=== PATIENT | male | born 1980 | race Caucasian/White ===

== ENCOUNTER → 2017-07-26 | Outpatient (CLI) | payer OTHER ==
--- NOTE | 2017-07-26 14:26 | MR ---
EXAMINATION TYPE: MR cervical spine without contrast. DATE OF EXAM: 07/26/2017 COMPARISON: NONE HISTORY: Neck and Low back pain, numbness and weakness mostly on Left side, No Known Trauma TECHNIQUE: Multiplanar, multisequence imaging of the cervical spine is performed without IV contrast. FINDINGS: MRI of the brain without contrast reveals no evidence of cerebellar ectopia. Marrow signal is appropriate. There is mild intervertebral disc desiccation noted at the level of C5-C6. The cord i s normal in caliber and signal. There is no evidence of cord edema. Visualized soft tissue structures are unremarkable. The prevertebral space appears to be within normal limits. There is a normal relationship between the anterior arch of C1 and the dens process. C2-3: No central canal stenosis or neural foraminal narrowing is identified. C3-4: Minimal posterior disc bulge is identified which effaces the ventral thecal sac but does not ab ut the cord. There is satisfactory CSF space anterior to the cord. No central canal stenosis or neura l foraminal narrowing is identified. C4-5: Minimal posterior disc bulge is identified. No central canal stenosis or neural foraminal narro wing is seen. C5-6: There is a posterior disc extrusion with minimal superior and inferior migration by 5 mm superi or and 4 mm inferior. There is near abutment of the cord. The central canal space appears to be intac t. Component of disc herniation into both lateral recesses which does not cause significant compromis e. There is mild relative central canal stenosis with no neural foraminal narrowing. C6-7: There is no central canal stenosis or neural foraminal narrowing. C7-T1: No central canal stenosis or neural foraminal narrowing. IMPRESSION: At the level of C5-C6 there is a posterior disc herniation with superior and inferior migration. EXAMINATION TYPE: MRI lumbar spine without contrast. DATE OF EXAM: July 26, 2017 COMPARISON: None HISTORY: Low back pain numbness and weakness on the left side. TECHNIQUE: Multisequence, multiplanar, MR imaging of the lumbar spine is performed without the use of intravenous contrast. FINDINGS: The conus is not definitively identified. There is disc desiccation noted at the level of L5-S1. Vert ebral body height is maintained. There is heterogeneous marrow signal noted in the vertebral body of S1 on the left of unknown etiology or significance. There appear to be bilateral pars interarticulari s defects with grade 1 anterolisthesis of L5 on S1. There is also posterior disc extrusion with no si gnificant migration. This disc extrusion extends into both neural foramina. Soft tissue structures ap pear unremarkable. T12-L1: No central canal stenosis or neural foraminal narrowing. L1-2: No central canal stenosis or neural foraminal narrowing. L2-3: No central canal stenosis or neural foraminal narrowing. L3-4: No central canal stenosis or neural foraminal narrowing is identified. L4-5: There is no central canal stenosis or neural foraminal narrowing. L5-S1: There is a posterior disc extrusion with no significant migration. There is no central canal s tenosis. There is also grade 1 anterolisthesis due to spondylolysis which contributes to at least mod erate bilateral neural foraminal narrowing with severe neural foraminal narrowing on the left keshawn sing the exiting left L5 nerve root. IMPRESSION: At the level of L5-S1 there is grade 1 anterolisthesis with posterior disc extrusion due to bilateral pars interarticularis defects with bilateral neural foraminal narrowing and compression and deformity of the exiting left L5 nerve root.
== END | disposition home or self-care (01) ==
LOC: RADMRIMAIN 09:37
PROVIDERS: ATTEND Nurse Practitioner Acute Care
DX: M99.73 Connective tissue and disc stenosis of intervertebral foramina of lumbar region (principal); M51.27 Other intervertebral disc displacement, lumbosacral region; M43.17 Spondylolisthesis, lumbosacral region; M50.222 Other cervical disc displacement at C5-C6 level
CPT/HCPCS: 72141; 72148

== ENCOUNTER 2019-12-06 11:12 | Observation (INO) | payer OTHER ==
[2019-12-06] MEDS ORDERED: SODIUM CHLORIDE 0.9% 1,000 ML IV STA ×2 (11:27)
[2019-12-06] MEDS ORDERED: NITROGLYCERIN SL TABS 0.4 MG TAB SUBLINGUAL STA (11:27)
[2019-12-06] MEDS ORDERED: ASPIRIN 81 MG PO STA (11:27)
[2019-12-06] MEDS ORDERED: MORPHINE SULFATE 2 MG/ML SYRINGE IVP STA (11:27)
[2019-12-06] MEDS ORDERED: ONDANSETRON 4 MG/2 ML VIAL IVP STA (11:29)
--- NOTE | 2019-12-06 11:32 | ED ---
Chest Pain HPI - General Chief Complaint: Chest Pain Stated Complaint: chest & arm pain Time Seen by Provider: 12/06/19 11:17 Source: patient, RN notes reviewed, old records reviewed Mode of arrival: ambulatory Limitations: no limitations - History of Present Illness Initial Comments: Patient is a 39-year-old male who presents emergency Department today with complaints of nausea and vomiting. Generally unwell which prompted him to come to his primary care doctor's office today. Patient was awaiting the primary care doctor's office Patient noticed that he was starting to have some chest discomfort with radiation down the left arm. Patient had an EKG performed there which showed sinus rhythm and RSR in V1 and V2. There is no signs of STEMI at that time. And the PCP encouraged Patient to come here for further evaluation. He does report that he's been having some intermittent chest discomfort with radiation down the arm for the past few weeks. He does not see special education secretary. He is a nonsmoker. Patient is a diabetic manages his diabetes with diet and oral medication. Patient reports he's had no changes in stools or urine. Patient reports his pain is a 9 out of 10 on the chest and the radiation down the left arm. - Related Data Home Medications Medication Instructions Recorded Confirmed Albuterol Sulfate [Proair Hfa] 1 - 2 puff INHALATION RT-Q6H PRN 03/16/16 12/06/19 DULoxetine HCL [Cymbalta] 30 mg PO BID 12/06/19 12/06/19 Ergocalciferol [Vitamin D2] 50,000 unit PO MOFR 12/06/19 12/06/19 HYDROcodone/APAP 7.5-325MG [[place] 1 tab PO BID 12/06/19 12/06/19 7.5-325] Omeprazole [PriLOSEC] 40 mg PO DAILY 12/06/19 12/06/19 tiZANidine [Zanaflex] 2 mg PO HS 12/06/19 12/06/19 Previous Rx's Medication Instructions Recorded Naproxen 500 mg PO Q12HR #20 tab 03/16/16 Allergies Allergy/AdvReac Type Severity Reaction Status Date / Time No Known Allergies Allergy Verified 12/06/19 11:57 Review of Systems ROS Statement: Those systems with pertinent positive or pertinent negative responses have been documented in the HPI. ROS Other: All systems not noted in ROS Statement are negative. EKG Findings - EKG Comments: EKG Findings:: EKG performed at 11:21 AM shows sinus bradycardia, minimal voltage criteria for LVH. Ventricular rate of 56 bpm. Intervals 152 ms. QS duration 98 ms. QT QTc is\ 438/422 ms. Past Medical History Past Medical History: Asthma History of Any Multi-Drug Resistant Organisms: None Reported Past Surgical History: No Surgical Hx Reported Past Psychological History: No Psychological Hx Reported Smoking Status: Never smoker Past Alcohol Use History: None Reported Past Drug Use History: None Reported General Exam - General Exam Comments Initial Comments: 39-year-old male. Alert and oriented 3. Limitations: no limitations General appearance: alert, in no apparent distress Head exam: Present: atraumatic, normocephalic, normal inspection Eye exam: Present: normal appearance, PERRL, EOMI. Absent: scleral icterus, conjunctival injection, periorbital swelling ENT exam: Present: normal exam, mucous membranes moist Neck exam: Present: normal inspection. Absent: tenderness, meningismus, lymphadenopathy Respiratory exam: Present: normal lung sounds bilaterally Cardiovascular Exam: Present: regular rate Extremities exam: Present: normal inspection, full ROM, normal capillary refill. Absent: tenderness, pedal edema, joint swelling, calf tenderness Back exam: Present: normal inspection Neurological exam: Present: alert, oriented X3, CN II-XII intact Psychiatric exam: Present: normal affect, normal mood Course Vital Signs 12/06/19 12/06/19 12/06/19 11:14 11:45 11:51 Temperature 97.9 F Pulse Rate 64 58 L 66 Respiratory 18 16 16 Rate Blood Pressure 148/79 127/90 131/90 O2 Sat by Pulse 99 98 97 Oximetry Chest Pain MDM - MDM His is a 39-year-old male who presents emergency Department today with complaints of chest discomfort range on the left-sided arm symptoms starting an hour prior to arrival. He was going to his primary care doctor's office for nausea and vomiting symptoms recurring today and while the PCP about the chest discomfort. He reports he's been having these symptoms intermittently for the past few months. He is a diabetic not seen a special education secretary. With the persistent symptoms concerning for unstable angina Patient will be admitted at this time. Troponin was negative d-dimer is negative. Chest x-ray shows no acute process. Course in Central interstitial could be related to bronchitis reports ration. Correlate clinically exclude interstitial pneumonitis or venous congestion. Disposition Clinical Impression: Unstable angina Disposition: ADMITTED IP TO THIS HOSP Condition: Good Is patient prescribed a controlled substance at d/c from ED?: No Referrals: [facility] [Primary Care Provider] - 1-2 days Time of Disposition: 13:18
[2019-12-06 11:51] LABS: Basophils # (A) 0.1 k/uL (0-0.2); Basophils % (A) 1 %; Eosinophils # (A) 0.3 k/uL (0-0.7); Eosinophils % (A) 5 %; HCT 44.1 % (39.0-53.0); HGB 14.8 gm/dL (13.0-17.5); Lymphocytes # (A) 1.9 k/uL (1.0-4.8); Lymphocytes % (A) 30 %; MCH 29.2 pg (25.0-35.0); MCHC 33.6 g/dL (31.0-37.0); MCV 86.8 fL (80.0-100.0); Mean Platelet Volume 7.2; Monocytes # (A) 0.4 k/uL (0-1.0); Monocytes % (A) 6 %; Neutrophils # (A) 3.6 k/uL (1.3-7.7); Neutrophils % (A) 55 %; Platelet Count 309 k/uL (150-450); RBC 5.08 m/uL (4.30-5.90); RDW 13.4 % (11.5-15.5); WBC 6.5 k/uL (3.8-10.6)
[2019-12-06 12:02] LABS: ALT 33 U/L (4-49); AST 33 U/L (17-59); African American GFR (CKD) >90 (>60 ml/min/1.73 sqM); Albumin 4.6 g/dL (3.5-5.0); Alkaline Phosphatase 47 U/L (38-126); Amylase 53 U/L (30-110); Anion Gap 6 mmol/L; Blood Urea Nitrogen 14 mg/dL (9-20); Calcium 9.5 mg/dL (8.4-10.2); Carbon Dioxide 28 mmol/L (22-30); Chloride 106 mmol/L (98-107); D-Dimer 0.19 mg/L FEU (<0.60); Glucose 98 mg/dL (74-99); Magnesium 2.1 mg/dL (1.6-2.3); Non-African American GFR(CKD) >90 (>60 ml/min/1.73 sqM); Partial Thromboplastin Time 22.4 sec (22.0-30.0); Potassium 4.8 mmol/L (3.5-5.1); Prothrombin Time 10.1 sec (9.0-12.0); Sodium 140 mmol/L (137-145); Total Bilirubin 0.6 mg/dL (0.2-1.3); Total Protein 7.3 g/dL (6.3-8.2)
--- NOTE | 2019-12-06 12:09 | XR ---
EXAMINATION TYPE: XR chest 2V DATE OF EXAM: 12/06/2019 COMPARISON: NONE TECHNIQUE: PA and lateral views submitted. HISTORY: Chest pain FINDINGS: The lungs are clear and there is no pneumothorax, pleural effusion, or focal pneumonia. Coarsened c entral interstitium. Heart size normal. IMPRESSION: 1. No acute process. Coarsened central interstitium could be related to bronchitis or poor inspiratio n. Correlate clinically to exclude interstitial pneumonitis or venous congestion.
[2019-12-06] MEDS ORDERED: MORPHINE SULFATE 4 MG/ML SYRINGE IV PRN (13:18)
[2019-12-06] MEDS ORDERED: NITROGLYCERIN SL TABS 0.4 MG TAB SUBLINGUAL PRN (13:18)
[2019-12-06] MEDS ORDERED: ALBUTEROL NEBULIZED 2.5 MG/3 ML INHALATION PRN (14:22)
[2019-12-06 15:22] VITALS: RESP 18
[2019-12-06 19:47] VITALS: BP 127/69; PULSE 63; TEMP 98.4
[2019-12-06 20:40] LABS: Appearance,Urine Clear (Clear); Color,Urine Yellow; Glucose,Urine (UA) Negative (Negative); Ketones,Urine Negative (Negative); Protein,Urine Negative (Negative); Specific Gravity,Urine 1.005 (1.001-1.035)
[2019-12-06 20:41] LABS: Bilirubin,Urine Negative (Negative); Blood,Urine Negative (Negative); Leukocyte Esterase,Urine Negative (Negative); Nitrite,Urine Negative (Negative); Urobilinogen,Urine <2.0 mg/dL (<2.0)
[2019-12-06] MEDS ORDERED: tiZANidine 4 MG TAB PO SCH (21:00)
[2019-12-06] MEDS ORDERED: HYDROcodone/APAP 7.5-325MG 1 EACH TAB PO SCH (21:00)
[2019-12-06] MEDS ORDERED: DULoxetine HCL 30 MG CAPSULE.DR PO SCH (21:00)
--- NOTE | 2019-12-06 22:14 | P.HPIM ---
History of Present Illness H&P Date: 12/06/19 Chief Complaint: Chest pain and angina, diabetes, hypertension, hyperlipidemia 39-year-old male [facility] with past medical history of type 2 diabetes on diet controlled, hypertension, hyperlipidemia, chronic pain syndrome and lower back pain with severe degenerative disc disease who had chronic depression as well who was [facility] for his regular follow-up initially was having mild abdominal pain with nausea and vomiting his symptoms have settled down while he is in the waiting room developed to have midsternal chest pain radiating toward the left upper side of his chest wall. Patient had slight shortness of breath with mild dyspnea with minimum exertion with the current symptoms his EKG apparently showed slight abnormality in [facility] and was instructed to come to the emergency department to be evaluated. Patient was seen at the emergency room his EKG showed left ventricular hypertrophy. Laboratory value showed normal troponin normal urine test with chemistry panel d-dimer was negative at the time. With patient risk factor and current presentation patient will be admitted to the hospital will continue to watch his troponin through the night consult cardiology plan to do an echocardiogram and positive going for simple stress echo to more morning. Review of Systems CONSTITUTIONAL: Well-developed no acute respiratory distress. EYES: No icterus sclerae, no conjunctivitis. EARS, NOSE, MOUTH, THROAT, and FACE: No sore throat, lymphadenopathy, carotid bruits or deformity. RESPIRATORY: No SOB cough or wheezes. CARDIOVASCULAR: No CP, Palpitation, PND, Orthopnea, or angina. GASTROINTESTINAL: No Abd pain, Nausea or vomiting, no Diarrhea or constipation, No GI Bleed, no distention or masses. GENITOURINARY: Negative for Hematuria or UTI, no kidney stones. INTEGUMENT/BREAST: Negative for any muscular injury with mild osteoarthritis.. HEMATOLOGIC/LYMPHATIC: Negative for bleed or purpura. MUSCULOSKELTAL: Negative for Myalgia or arthralgia. NEURLOGICAL: No LOC, Sz or syncope, blurred vision dizziness or abnormality.. BEHAVIORAL/PSYCH: Negative. ENDOCRINE: Negative. 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 Family history: His father a 72 from [place], mother is living in her 66 had history of CAD post [place], patient had 1 sister who from diabetic ulcer and gangrene. Patient does not have any children. Past Medical History Past Medical History: Asthma, Diabetes Mellitus, GERD/Reflux, Liver Disease, Pneumonia Additional Past Medical History / Comment(s): NIDDM type II-diet controlled, bronchitis, nonalcoholic fatty liver, RLS, chronic cervical/back pain. History of Any Multi-Drug Resistant Organisms: None Reported Past Surgical History: Orthopedic Surgery Additional Past Surgical History / Comment(s): Bilateral eye surgery for strabismus, R foot surgery to remove glass, colonoscopy. Past Anesthesia/Blood Transfusion Reactions: No Reported Reaction Past Psychological History: Depression Additional Psychological History / Comment(s): Pt resides with his significant other. He uses no assistive device. He does not drive, his significant other takes him to [email or web address]. Smoking Status: Never smoker Past Alcohol Use History: None Reported Past Drug Use History: None Reported - Past Family History Mother Family Medical History: Coronary Artery Disease (CAD), Diabetes Mellitus, Myocardial Infarction ([place]) Additional Family Medical History / Comment(s): CABG, pt does not recall at what age mother had [place] Father Family Medical History: Asthma, Coronary Artery Disease (CAD), Diabetes Mellitus Medications and Allergies Home Medications Medication Instructions Recorded Confirmed Type Albuterol Sulfate [Proair Hfa] 1 - 2 puff INHALATION RT-Q6H PRN 03/16/16 12/06/19 History Naproxen 500 mg PO Q12HR #20 tab 03/16/16 12/06/19 Rx DULoxetine HCL [Cymbalta] 30 mg PO BID 12/06/19 12/06/19 History Ergocalciferol [Vitamin D2] 50,000 unit PO MOFR 12/06/19 12/06/19 History HYDROcodone/APAP 7.5-325MG [[place] 1 tab PO BID 12/06/19 12/06/19 History 7.5-325] Omeprazole [PriLOSEC] 40 mg PO DAILY 12/06/19 12/06/19 History tiZANidine [Zanaflex] 2 mg PO HS 12/06/19 12/06/19 History Allergies Allergy/AdvReac Type Severity Reaction Status Date / Time No Known Allergies Allergy Verified 12/06/19 11:57 Physical Exam Vitals: Vital Signs Temp Pulse Pulse Resp BP BP Pulse Ox 12/06/19 19:47 98.4 F 63 18 127/69 98 12/06/19 15:00 97.9 F 51 L 18 130/84 98 12/06/19 14:08 56 L 16 126/78 98 12/06/19 13:00 57 L 16 115/71 97 12/06/19 12:30 55 L 12/06/19 11:51 66 16 131/90 97 12/06/19 11:45 58 L 16 127/90 98 12/06/19 11:30 55 L 12/06/19 11:23 55 L 12/06/19 11:14 97.9 F 64 18 148/79 99 Intake and Output 12/06/19 12/06/19 12/06/19 06:59 14:59 22:59 Other: Voiding Method Toilet Weight 88.451 kg General Appearance: Alert, cooperative, no distress, appears stated age. Neck HEENT: Supple, no lymphadenopathy, no thyroid enlargement, no carotid bruits. Lungs: Clear to auscultation without crackles or wheezes no rhonchi, no deformity. Chest Wall: Chest wall normal expansion with deep inspiration no tenderness and no deformity was found on exam, no costochondral pain or discomfort. Heart: Regular rate and rhythm, S1, S2 normal, no murmur, rub or gallop. Back: Symmetric, no curvature, ROM normal, no CVA tenderness. Abdomen: Soft, non-tender, bowel sounds active all four quadrants, no masses, no organomegaly. Extremities: Extremities normal, atraumatic, no cyanosis or edema. Pulses: 2+ and symmetric. Skin: Skin color, texture, tugor normal, no rashes or lesions. Neurologic: Alert oriented x3 cranial nerves II through XII intact, no motor deficit, no abnormal balance or gait. Results CBC & Chem 7: 12/06/19 11:35 12/06/19 11:35 Thrombosis Risk Factor Assmnt - DVT/VTE Prophylaxis DVT/VTE Prophylaxis: Mechanical Prophylaxis ordered - Choose All That Apply Each Factor Represents 1 point: Age 41-60 years, Obesity (BMI >25) Other Risk Factors: No Other congenital or acquired thrombophilia - If yes, enter type in comment: No Thrombosis Risk Factor Assessment Total Risk Factor Score: 2 Thrombosis Risk Factor Assessment Level: Low Risk Assessment and Plan Assessment: 1 chest pain and angina: Patient had multiple risk factor for heart disease with his current presentation slightly atypical but he had risk factor with his type 2 diabetes not on any medication, high blood pressure and high cholesterol, patient be admitted to the hospital continue to watch his troponin through the night. Another EKG consult cardiology plan for an echocardiogram and probably stress echo in the morning. 2 history of asthma: Weight control lately on rescue inhaler. 3 chronic pain syndrome: Patient has been on Zanaflex and hydrocodone as needed is known to have chronic lumbar disc disease. 4 hypertension: He is on low-salt diet not on any medication apparently was on a smaller dose of maggy inhibitor in the past. 5 hyperlipidemia: Again still on diet control depend on the finding with his cardiac testing patient can benefit from being on statin such as atorvastatin 10 mg daily. 6 chronic depression: Continue patient on duloxetine 50 mg twice a day. 7 severe GERD/GI prophylaxis: Continue patient on Prilosec. 8 DVT prophylaxis: Early mobilization and knee-high SINTIA hose. CODE STATUS: Full code. Admit patient to observation service for one night stay.
[2019-12-07] MEDS ORDERED: PANTOPRAZOLE 40 MG TABLET PO SCH (07:30)
[2019-12-07] MEDS ORDERED: ASPIRIN 325 MG TAB PO SCH (09:00)
--- NOTE | 2019-12-07 09:00 | ECHOF ---
Referral Reason:chest pain MEASUREMENTS -------- HEIGHT: 182.9 cm WEIGHT: 88.5 kg BP: 115/71 RVIDd: 3.0 cm (< 3.3) IVSd: 1.4 cm (0.6 - 1.1) LVIDd: 4.2 cm (3.9 - 5.3) LVPWd: 1.4 cm (0.6 - 1.1) IVSs: 2.1 cm LVIDs: 2.6 cm LVPWs: 1.6 cm LAESV Index (A-L): 17.91 ml/m Ao Diam: 3.2 cm (2.0 - 3.7) AV Cusp: 2.4 cm (1.5 - 2.6) MV EXCURSION: 18.221 mm (> 18.000) MV EF SLOPE: 120 mm/s (70 - 150) EPSS: 0.9 cm MV E Sanchez: 0.82 m/s MV DecT: 188 ms MV A Sanchez: 0.39 m/s MV E/A Ratio: 2.08 RAP: 5.00 mmHg RVSP: 17.61 mmHg FINDINGS -------- This was a technically adequate study. The left ventricular size is normal. There is moderate concentric left ventricular hypertrophy. O verall left ventricular systolic function is normal with, an EF between 55 - 60 %. The diastolic fi lling pattern is normal for the age of the patient 9.14. The right ventricle is normal in size. Normal LA size by volume 22+/-6 ml/m2. The right atrial size is normal. Interatrial and interventricular septum intact. There is doming of the aortic valve leaflets. There is no evidence of aortic stenosis. No mitral regurgitation. Mild tricuspid regurgitation present. There is no evidence of pulmonary hypertension. The right v entricular systolic pressure, as measured by Doppler, is 17.61mmHg. There is no pulmonic regurgitation present. The aortic root size is normal. IVC Not well visulized. There is no pericardial effusion. CONCLUSIONS -------- 1. This was a technically adequate study. 2. The left ventricular size is normal. 3. There is moderate concentric left ventricular hypertrophy. 4. Overall left ventricular systolic function is normal with, an EF between 55 - 60 %. 5. The diastolic filling pattern is normal for the age of the patient 9.14 6. The right ventricle is normal in size. 7. Normal LA size by volume 22+/-6 ml/m2. 8. The right atrial size is normal. 9. Interatrial and interventricular septum intact. 10. There is doming of the aortic valve leaflets. 11. There is no evidence of aortic stenosis. 12. No mitral regurgitation. 13. Mild tricuspid regurgitation present. 14. There is no evidence of pulmonary hypertension. 15. The right ventricular systolic pressure, as measured by Doppler, is 17.61mmHg. 16. There is no pulmonic regurgitation present. 17. The aortic root size is normal. 18. IVC Not well visulized. 19. There is no pericardial effusion. [facility]: Luda Cisneros RDCS
== END 2019-12-06 23:37 | disposition home or self-care (01) ==
LOC: EC 11:12 → 1SOBS 13:42
PROVIDERS: ADMIT Internal Medicine Geriatric Medicine; ATTEND Internal Medicine Geriatric Medicine
DX: R07.89 Other chest pain (principal); I20.0 Unstable angina; J45.909 Unspecified asthma, uncomplicated; E78.5 Hyperlipidemia, unspecified; G89.4 Chronic pain syndrome; F32.9 Major depressive disorder, single episode, unspecified; R10.9 Unspecified abdominal pain; R94.31 Abnormal electrocardiogram [ECG] [EKG]; I11.9 Hypertensive heart disease without heart failure; K21.9 Gastro-esophageal reflux disease without esophagitis; K76.0 Fatty (change of) liver, not elsewhere classified; E11.9 Type 2 diabetes mellitus without complications; G25.81 Restless legs syndrome; M54.2 Cervicalgia; M51.36 Other intervertebral disc degeneration, lumbar region; E66.9 Obesity, unspecified; Z68.26 Body mass index [BMI] 26.0-26.9, adult; Z79.84 Long term (current) use of oral hypoglycemic drugs; Z79.899 Other long term (current) drug therapy; Z79.891 Long term (current) use of opiate analgesic; Z79.1 Long term (current) use of non-steroidal anti-inflammatories (NSAID); Z87.01 Personal history of pneumonia (recurrent); Z87.09 Personal history of other diseases of the respiratory system; Z82.49 Family history of ischemic heart disease and other diseases of the circulatory system; Z83.3 Family history of diabetes mellitus; Z82.5 Family history of asthma and other chronic lower respiratory diseases; Z20.828 Contact with and (suspected) exposure to other viral communicable diseases
CPT/HCPCS: 96361; 96374; 96375; 99285; 36415; 93005; 93306; 85379; 83880; 80053; 82150; 83690; 83735; 84484; 85025; 85610; 85730; 81003; 71046; G0378; U0003; J2405; J2270

== ENCOUNTER 2021-01-27 11:19 | Emergency (ER) | payer OTHER ==
[2021-01-27 11:39] VITALS: TEMP 98.4
[2021-01-27] MEDS ORDERED: SODIUM CHLORIDE 0.9% 1,000 ML IV STA (11:53)
[2021-01-27] MEDS ORDERED: MORPHINE SULFATE 4 MG/ML SYRINGE IV STA (11:53)
--- NOTE | 2021-01-27 11:58 | ED ---
Abdominal Pain HPI - General Chief Complaint: Abdominal Pain Stated Complaint: abd pain Source: patient, RN notes reviewed Mode of arrival: ambulatory Limitations: no limitations - History of Present Illness Initial Comments: 40-year-old white male, alert and oriented 4, presents to the emergency room with complaints of epigastric abdominal pain. Patient states he was told he has a hiatal hernia and has been causing his pain since . He states that he cannot get relief with sitting standing or walking. The pain is constant and sharp in nature. He denies any fevers. He states he is diabetic but it is diet controlled. Does not take any medications other than Prilosec. Patient states he had an endoscopy several years ago and that's when diagnosed with hiatal hernia but he has not followed up. He now lives out here and does need a GI doctor. MD Complaint: abdominal pain -: days(s) (3) Location: epigastric Radiation: none Severity: moderate Severity scale (1-10): 5 Quality: sharp Consistency: intermittent Improves With: nothing Worsens With: nothing Context: other (Believes hiatal hernia pain) Associated Symptoms: denies other symptoms - Related Data Home Medications Medication Instructions Recorded Confirmed Albuterol Sulfate [Proair Hfa] 1 - 2 puff INHALATION RT-Q6H PRN 03/16/16 12/06/19 DULoxetine HCL [Cymbalta] 30 mg PO BID 12/06/19 12/06/19 Ergocalciferol [Vitamin D2] 50,000 unit PO MOFR 12/06/19 12/06/19 HYDROcodone/APAP 7.5-325MG [[place] 1 tab PO BID 12/06/19 12/06/19 7.5-325] Omeprazole [PriLOSEC] 40 mg PO DAILY 12/06/19 12/06/19 tiZANidine [Zanaflex] 2 mg PO HS 12/06/19 12/06/19 Previous Rx's Medication Instructions Recorded Naproxen 500 mg PO Q12HR #20 tab 03/16/16 Allergies Allergy/AdvReac Type Severity Reaction Status Date / Time No Known Allergies Allergy Verified 01/27/21 11:39 Review of Systems ROS Statement: Those systems with pertinent positive or pertinent negative responses have been documented in the HPI. ROS Other: All systems not noted in ROS Statement are negative. Past Medical History Past Medical History: Asthma, Diabetes Mellitus, GERD/Reflux, Liver Disease, Pneumonia Additional Past Medical History / Comment(s): NIDDM type II-diet controlled, bronchitis, nonalcoholic fatty liver, RLS, chronic cervical/back pain. History of Any Multi-Drug Resistant Organisms: None Reported Past Surgical History: Orthopedic Surgery Additional Past Surgical History / Comment(s): Bilateral eye surgery for strabismus, R foot surgery to remove glass, colonoscopy. Past Anesthesia/Blood Transfusion Reactions: No Reported Reaction Past Psychological History: Depression Smoking Status: Never smoker Past Alcohol Use History: None Reported Past Drug Use History: None Reported - Past Family History Mother Family Medical History: Coronary Artery Disease (CAD), Diabetes Mellitus, Myocardial Infarction ([place]) Additional Family Medical History / Comment(s): CABG, pt does not recall at what age mother had [place] Father Family Medical History: Asthma, Coronary Artery Disease (CAD), Diabetes Mellitus General Exam Limitations: no limitations General appearance: alert, in no apparent distress Head exam: Present: atraumatic, normocephalic, normal inspection Eye exam: Present: normal appearance, PERRL, EOMI. Absent: scleral icterus, conjunctival injection, periorbital swelling ENT exam: Present: normal exam, normal oropharynx, mucous membranes moist Neck exam: Present: normal inspection, full ROM. Absent: tenderness, meningismus, lymphadenopathy, thyromegaly Respiratory exam: Present: normal lung sounds bilaterally. Absent: respiratory distress, wheezes, rales, rhonchi, stridor, chest wall tenderness, accessory muscle use, decreased breath sounds, prolonged expiratory Cardiovascular Exam: Present: bradycardia GI/Abdominal exam: Present: soft, tenderness (Epigastric), normal bowel sounds. Absent: distended, guarding, rebound, rigid, mass Extremities exam: Present: normal inspection, full ROM, normal capillary refill. Absent: tenderness, pedal edema, joint swelling, calf tenderness Back exam: Present: normal inspection, full ROM. Absent: tenderness, CVA tenderness (R), CVA tenderness (L), muscle spasm, paraspinal tenderness, rash noted Neurological exam: Present: alert, oriented X3, CN II-XII intact Psychiatric exam: Present: normal affect, normal mood Skin exam: Present: warm, dry, intact, normal color. Absent: rash, cyanosis, diaphoretic, petechiae, pallor Course Vital Signs 01/27/21 11:37 Temperature 98.4 F Pulse Rate 57 L Respiratory 18 Rate Blood Pressure 130/87 O2 Sat by Pulse 99 Oximetry Medical Decision Making - Medical Decision Making Abdominal CT shows no acute inflammatory process. There is a cystic lesion from the anterior mid pole of the left kidney measuring 2.1 cm cannot exclude early neoplasm. There is a thickened appearance the floor of the bladder which could reflect bladder wall to be. Patient be referred to his primary care doctor for evaluation CBC and electrolytes are within normal limits, troponin is negative at 0.012. Case discussed with Dr. Segura - Lab Data Result diagrams: 01/27/21 12:24 01/27/21 12:24 Lab Results 01/27/21 01/27/21 01/27/21 Range/Units 12:24 12:24 12:24 WBC 4.8 (3.8-10.6) k/uL RBC 4.57 (4.30-5.90) m/uL Hgb 13.6 (13.0-17.5) gm/dL Hct 39.7 (39.0-53.0) % MCV 86.9 (80.0-100.0) fL MCH 29.8 (25.0-35.0) pg MCHC 34.2 (31.0-37.0) g/dL RDW 14.3 (11.5-15.5) % Plt Count 264 (150-450) k/uL MPV 7.2 Neutrophils % 56 % Lymphocytes % 32 % Monocytes % 5 % Eosinophils % 4 % Basophils % 1 % Neutrophils # 2.6 (1.3-7.7) k/uL Lymphocytes # 1.5 (1.0-4.8) k/uL Monocytes # 0.2 (0-1.0) k/uL Eosinophils # 0.2 (0-0.7) k/uL Basophils # 0.0 (0-0.2) k/uL Sodium 139 (137-145) mmol/L Potassium 4.1 (3.5-5.1) mmol/L Chloride 107 (98-107) mmol/L Carbon Dioxide 26 (22-30) mmol/L Anion Gap 6 mmol/L BUN 15 (9-20) mg/dL Creatinine 0.94 (0.66-1.25) mg/dL Est GFR (CKD-EPI)AfAm >90 (>60 ml/min/1.73 sqM) Est GFR (CKD-EPI)NonAf >90 (>60 ml/min/1.73 sqM) Glucose 98 (74-99) mg/dL Plasma Lactic Acid Sinan (0.7-2.0) mmol/L Calcium 9.3 (8.4-10.2) mg/dL Total Bilirubin 0.2 (0.2-1.3) mg/dL AST 29 (17-59) U/L ALT 25 (4-49) U/L Alkaline Phosphatase 42 (38-126) U/L Troponin I (0.000-0.034) ng/mL Total Protein 6.5 (6.3-8.2) g/dL Albumin 4.2 (3.5-5.0) g/dL Amylase 45 (30-110) U/L Lipase 67 (23-300) U/L Urine Color Yellow Urine Appearance Clear (Clear) Urine pH 6.5 (5.0-8.0) Ur Specific [place] 1.018 (1.001-1.035) Urine Protein Negative (Negative) Urine Glucose (UA) Negative (Negative) Urine Ketones Negative (Negative) Urine Blood Negative (Negative) Urine Nitrite Negative (Negative) Urine Bilirubin Negative (Negative) Urine Urobilinogen <2.0 (<2.0) mg/dL Ur Leukocyte Esterase Negative (Negative) 01/27/21 01/27/21 Range/Units 12:24 12:24 WBC (3.8-10.6) k/uL RBC (4.30-5.90) m/uL Hgb (13.0-17.5) gm/dL Hct (39.0-53.0) % MCV (80.0-100.0) fL MCH (25.0-35.0) pg MCHC (31.0-37.0) g/dL RDW (11.5-15.5) % Plt Count (150-450) k/uL MPV Neutrophils % % Lymphocytes % % Monocytes % % Eosinophils % % Basophils % % Neutrophils # (1.3-7.7) k/uL Lymphocytes # (1.0-4.8) k/uL Monocytes # (0-1.0) k/uL Eosinophils # (0-0.7) k/uL Basophils # (0-0.2) k/uL Sodium (137-145) mmol/L Potassium (3.5-5.1) mmol/L Chloride (98-107) mmol/L Carbon Dioxide (22-30) mmol/L Anion Gap mmol/L BUN (9-20) mg/dL Creatinine (0.66-1.25) mg/dL Est GFR (CKD-EPI)AfAm (>60 ml/min/1.73 sqM) Est GFR (CKD-EPI)NonAf (>60 ml/min/1.73 sqM) Glucose (74-99) mg/dL Plasma Lactic Acid Sinan 0.8 (0.7-2.0) mmol/L Calcium (8.4-10.2) mg/dL Total Bilirubin (0.2-1.3) mg/dL AST (17-59) U/L ALT (4-49) U/L Alkaline Phosphatase (38-126) U/L Troponin I <0.012 (0.000-0.034) ng/mL Total Protein (6.3-8.2) g/dL Albumin (3.5-5.0) g/dL Amylase (30-110) U/L Lipase (23-300) U/L Urine Color Urine Appearance (Clear) Urine pH (5.0-8.0) Ur Specific [place] (1.001-1.035) Urine Protein (Negative) Urine Glucose (UA) (Negative) Urine Ketones (Negative) Urine Blood (Negative) Urine Nitrite (Negative) Urine Bilirubin (Negative) Urine Urobilinogen (<2.0) mg/dL Ur Leukocyte Esterase (Negative) - EKG Data Rate: bradycardia (Ventricular rate of 48, DE interval 0.162, QRS of 0.108, QTc of 0.419) When compared to previous EKG there are: no significant change (12/06/2019) Disposition Clinical Impression: Abdominal pain Disposition: HOME SELF-CARE Condition: Good Instructions (If sedation given, give patient instructions): Abdominal Pain (ED) Additional Instructions: Return to the emergency room with any worsening symptoms including fever, vomiting blood or bloody diarrhea. Follow-up with the primary care doctor. Also follow up with gastroenterology for hernia and nephrology for kidney cyst as referred. Is patient prescribed a controlled substance at d/c from ED?: No [facility] - 1-2 days Biju Patricio DO [STAFF PHYSICIAN] - 1-2 days Geetha Fallon MD [STAFF PHYSICIAN] - 1-2 days Time of Disposition: 16:24
[2021-01-27 12:40] LABS: Basophils % (A) 1 %; Eosinophils # (A) 0.2 k/uL (0-0.7); Eosinophils % (A) 4 %; HCT 39.7 % (39.0-53.0); HGB 13.6 gm/dL (13.0-17.5); Lymphocytes # (A) 1.5 k/uL (1.0-4.8); Lymphocytes % (A) 32 %; MCH 29.8 pg (25.0-35.0); MCHC 34.2 g/dL (31.0-37.0); MCV 86.9 fL (80.0-100.0); Mean Platelet Volume 7.2; Monocytes # (A) 0.2 k/uL (0-1.0); Monocytes % (A) 5 %; Neutrophils # (A) 2.6 k/uL (1.3-7.7); Neutrophils % (A) 56 %; Platelet Count 264 k/uL (150-450); RBC 4.57 m/uL (4.30-5.90); RDW 14.3 % (11.5-15.5); WBC 4.8 k/uL (3.8-10.6)
[2021-01-27 12:47] LABS: African American GFR (CKD) >90 (>60 ml/min/1.73 sqM); Albumin 4.2 g/dL (3.5-5.0); Amylase 45 U/L (30-110); Anion Gap 6 mmol/L; Blood Urea Nitrogen 15 mg/dL (9-20); Calcium 9.3 mg/dL (8.4-10.2); Carbon Dioxide 26 mmol/L (22-30); Chloride 107 mmol/L (98-107); Glucose 98 mg/dL (74-99); Non-African American GFR(CKD) >90 (>60 ml/min/1.73 sqM); Potassium 4.1 mmol/L (3.5-5.1); Sodium 139 mmol/L (137-145); Total Bilirubin 0.2 mg/dL (0.2-1.3); Total Protein 6.5 g/dL (6.3-8.2)
[2021-01-27 12:48] LABS: ALT 25 U/L (4-49); AST 29 U/L (17-59); Alkaline Phosphatase 42 U/L (38-126); Lipase 67 U/L (23-300)
[2021-01-27] MEDS ORDERED: MAG HYDROX/AL HYDROX/SIMETH 30 ML, HYOSCYAMINE ELIXIR 10 ML, LIDOCAINE VISCOUS 2% 10 ML PO STA ×3 (13:18)
[2021-01-27] MEDS ORDERED: FAMOTIDINE 20 MG/2 ML VIAL IV STA (13:18)
--- NOTE | 2021-01-27 13:50 | CT ---
EXAMINATION TYPE: CT abdomen pelvis wo con DATE OF EXAM: 01/27/2021 COMPARISON: None HISTORY: For a 1-year-old male Abdominal pain, Epigastric to umbilical area-right side CT DLP: 635.9 mGycm. Automated exposure control for dose reduction was used. TECHNIQUE: Contiguous axial scanning of the abdomen and pelvis without IV contrast. Coronal and sagit kevin reconstructions performed. FINDINGS: Heart normal size without pericardial effusion. Tiny hiatal hernia. Dependent atelectasis in the visu alized lower lungs. Liver borderline enlarged at 17.4 cm. Tiny 8 mm hypodensity posterior central right liver lobe too sm all for accurate CT characterization, likely tiny cyst. Otherwise, noncontrast appearance of the liver, gallbladder, adrenal glands, spleen, and pancreas verenice w no gross anomaly. Left kidney shows a possible complex cyst measuring 2.1 cm with some mural based nodularity, axial im age 39 and coronal image 42 from the anterior midpole. Punctate nonobstructive 2 mm left renal calculus. Exophytic 3.8 cm cyst from the lower pole. Right kidney also shows an exophytic 4.1 cm cyst from the lower pole. Extrarenal pelvis on the right. No hydronephrosis on either side. No dilated small bowel, free fluid, or free air. Prominent 1 cm right mid abdominal mesenteric lymph node, coronal image 35 probably reactive. No other mesenteric or retroperitoneal lymphadenopathy seen . While the appendix is not discretely visualized, no secondary findings of acute appendicitis in the r ight lower quadrant. Mild stool burden. Small 9 mm diverticulum from the right bladder dome, axial image 77 and coronal image 56. Slightly th ickened appearance to the floor of the bladder, coronal image 52. Prostate gland 3.9 cm wide. Numerou s pelvic phleboliths. No abnormal fluid collection in the pelvis or pelvic lymphadenopathy. Bones: Bilateral L5 pars defects with disc bulge at L5-S1 and is slightly accentuated lordosis. IMPRESSION: 1. No acute inflammatory process identified in the abdomen or pelvis to explain the patient's sympto ms. No ureteral calculus or obstructive uropathy. 2. Punctate 2 mm nonobstructive left renal calculus. Prominent lower pole cyst from each kidney trisha uring up to 4.1 cm. 3. A cystic lesion from the anterior midpole of the left kidney measuring 2.1 cm may have some inter nal complexity with a mural based nodule. Recommend kidney MRI for further characterization and to ex clude early neoplasm. 4. Thickened appearance to the floor of the bladder, coronal image 52. There is also a small 9 mm di verticulum from the bladder dome. Findings may reflect chronic bladder wall hypertrophy. Correlate wi th urinalysis and urine cytology. Direct visualization if clinically indicated to exclude a urothelia l lesion along the bladder floor. 5. Bilateral L5 pars defects.
[2021-01-27 15:35] LABS: Appearance,Urine Clear (Clear); Bilirubin,Urine Negative (Negative); Blood,Urine Negative (Negative); Color,Urine Yellow; Glucose,Urine (UA) Negative (Negative); Ketones,Urine Negative (Negative); Leukocyte Esterase,Urine Negative (Negative); Nitrite,Urine Negative (Negative); PH, Urine 6.5 (5.0-8.0); Protein,Urine Negative (Negative); Specific Gravity,Urine 1.018 (1.001-1.035); Urobilinogen,Urine <2.0 mg/dL (<2.0)
[2021-01-27 16:35] VITALS: BP 128/71; PULSE 87; RESP 16
== END 2021-01-27 16:34 | disposition home or self-care (01) ==
LOC: EC 11:19
DX: R10.13 Epigastric pain (principal); E11.9 Type 2 diabetes mellitus without complications; J45.909 Unspecified asthma, uncomplicated; K21.9 Gastro-esophageal reflux disease without esophagitis; F32.9 Major depressive disorder, single episode, unspecified; Z79.1 Long term (current) use of non-steroidal anti-inflammatories (NSAID); Z79.899 Other long term (current) drug therapy; Z82.49 Family history of ischemic heart disease and other diseases of the circulatory system; Z83.3 Family history of diabetes mellitus
CPT/HCPCS: 36415; 93005; 80053; 82150; 83605; 83690; 84484; 85025; 81003; 74176; 96374; 96375; 96361; 99284; J2270

== ENCOUNTER 2021-03-24 17:00 | Emergency (ER) | payer OTHER ==
[2021-03-24 17:57] VITALS: BP 134/79; PULSE 64; RESP 18; TEMP 98.4
--- NOTE | 2021-03-24 17:58 | ED ---
General Adult HPI - General Source: patient, RN notes reviewed Mode of arrival: ambulatory Limitations: no limitations <Luis Manuel Wren - Last Filed: 03/24/21 18:47> <Ida Bennett - Last Filed: 03/26/21 01:03> - General Stated complaint: Neck Pain Time Seen by Provider: 03/24/21 17:55 - History of Present Illness Initial comments: This a 40-year-old male presents emergency Department chief complaint left side neck pain. Patient states that he does have history of disc issues of his neck but states that he started having pain yesterday on the side of his neck states hurts to twist and turn his head, neck. Patient's had chronic numbness of his left arm which has been ongoing for 2 years. Patient denies any blurred vision no focal weakness. Patient has a chest pain or shortness breath patient offers no complaints. (Luis Manuel Wren) - Related Data Home Medications Medication Instructions Recorded Confirmed Albuterol Sulfate [Proair Hfa] 1 - 2 puff INHALATION RT-Q6H PRN 03/16/16 12/06/19 DULoxetine HCL [Cymbalta] 30 mg PO BID 12/06/19 12/06/19 Ergocalciferol [Vitamin D2] 50,000 unit PO MOFR 12/06/19 12/06/19 HYDROcodone/APAP 7.5-325MG [[place] 1 tab PO BID 12/06/19 12/06/19 7.5-325] Omeprazole [PriLOSEC] 40 mg PO DAILY 12/06/19 12/06/19 tiZANidine [Zanaflex] 2 mg PO HS 12/06/19 12/06/19 Previous Rx's Medication Instructions Recorded Naproxen 500 mg PO Q12HR #20 tab 03/16/16 Cyclobenzaprine [Flexeril] 10 mg PO TID PRN #15 tab 03/24/21 Ibuprofen [Motrin] 600 mg PO Q8HR PRN #20 tab 03/24/21 Allergies Allergy/AdvReac Type Severity Reaction Status Date / Time No Known Allergies Allergy Verified 03/24/21 17:55 Review of Systems ROS Other: All systems not noted in ROS Statement are negative. <Luis Manuel Wren - Last Filed: 03/24/21 18:47> ROS Other: All systems not noted in ROS Statement are negative. <Ida Bennett A - Last Filed: 03/26/21 01:03> ROS Statement: Those systems with pertinent positive or pertinent negative responses have been documented in the HPI. Past Medical History Past Medical History: Asthma, Diabetes Mellitus, GERD/Reflux, Liver Disease, Pneumonia Additional Past Medical History / Comment(s): NIDDM type II-diet controlled, bronchitis, nonalcoholic fatty liver, RLS, chronic cervical/back pain. History of Any Multi-Drug Resistant Organisms: None Reported Past Surgical History: Orthopedic Surgery Additional Past Surgical History / Comment(s): Bilateral eye surgery for strabismus, R foot surgery to remove glass, colonoscopy. Past Anesthesia/Blood Transfusion Reactions: No Reported Reaction Past Psychological History: Depression Smoking Status: Never smoker Past Alcohol Use History: None Reported Past Drug Use History: None Reported - Past Family History Mother Family Medical History: Coronary Artery Disease (CAD), Diabetes Mellitus, Myocardial Infarction ([place]) Additional Family Medical History / Comment(s): CABG, pt does not recall at what age mother had [place] Father Family Medical History: Asthma, Coronary Artery Disease (CAD), Diabetes Mellitus <Luis Manuel Wren M - Last Filed: 03/24/21 18:47> General Exam General appearance: alert, in no apparent distress Head exam: Present: atraumatic, normocephalic, normal inspection Eye exam: Present: normal appearance, PERRL, EOMI. Absent: scleral icterus, conjunctival injection, periorbital swelling ENT exam: Present: normal exam, normal oropharynx, mucous membranes moist Neck exam: Present: tenderness (Left paraspinal no vertebral tenderness, muscle spasm noted left paraspinal), full ROM. Absent: normal inspection, meningismus, lymphadenopathy Respiratory exam: Present: normal lung sounds bilaterally. Absent: respiratory distress, wheezes, rales, rhonchi, stridor Cardiovascular Exam: Present: regular rate, normal rhythm, normal heart sounds. Absent: systolic murmur, diastolic murmur, rubs, gallop, clicks Extremities exam: Present: normal inspection, full ROM, normal capillary refill, other (Upper extremity strength equal bilaterally). Absent: tenderness, pedal edema, joint swelling, calf tenderness Back exam: Present: normal inspection, full ROM. Absent: tenderness, paraspinal tenderness, vertebral tenderness Neurological exam: Present: alert, oriented X3, reflexes normal. Absent: motor sensory deficit <Luis Manuel Wren - Last Filed: 03/24/21 18:47> Course Vital Signs 03/24/21 17:55 Temperature 98.4 F Pulse Rate 64 Respiratory 18 Rate Blood Pressure 134/79 O2 Sat by Pulse 96 Oximetry Medical Decision Making <Luis Manuel Wren - Last Filed: 03/24/21 18:47> <Ida Bennett - Last Filed: 03/26/21 01:03> - Medical Decision Making X-rays are unremarkable. Patient neurologically intact. Patient has cervical spasm spasmatic torticollis (Luis Manuel Wren) I was available for consultation in the emergency department. The history and physical exam were done by the midlevel provider. I was consulted for this patients care. I reviewed the case with the midlevel provider and based on their presentation of the patient, I agree with the assessment, medical decision making and plan of care as documented. Chart was dictated using [employer] ([employer]AM) dictation software. Attempts were made to correct any dictation errors however some typographical errors may persist. (Ida Bennett) Disposition Is patient prescribed a controlled substance at d/c from ED?: No Time of Disposition: 18:49 <Luis Manuel Wren - Last Filed: 03/24/21 18:47> <Ida Bennett - Last Filed: 03/26/21 01:03> Clinical Impression: Strain of neck muscle, Cervical paraspinal muscle spasm Disposition: HOME SELF-CARE Condition: Stable Instructions (If sedation given, give patient instructions): Spasmodic Torticollis (ED) Additional Instructions: Please return to the Emergency Department if symptoms worsen or any other concerns. Prescriptions: Cyclobenzaprine [Flexeril] 10 mg PO TID PRN #15 tab PRN Reason: Muscle Spasm Ibuprofen [Motrin] 600 mg PO Q8HR PRN #20 tab PRN Reason: Pain [facility] - 1-2 days
--- NOTE | 2021-03-24 18:26 | XR ---
EXAMINATION TYPE: XR cervical spine comp DATE OF EXAM: 03/24/2021 COMPARISON: NONE HISTORY: Neck pain TECHNIQUE: 5 views FINDINGS: There is cervical mild kyphotic deformity. There is degenerative disc space narrowing at C5 -6 with mild spurring. Posterior elements are intact. Neural foramina are widely patent. Atlantoaxial facet joint is normal. There are no cervical ribs. IMPRESSION: Cervical mild kyphotic deformity could relate to spasm or ligamentous injury. No fracture seen.
[2021-03-24] MEDS ORDERED: DIAZEPAM 5 MG/ML 2 ML INJ IM STA (18:47)
[2021-03-24] MEDS ORDERED: ACET/COD 300 MG/30 MG STARTER PACK 6 TAB BTL PO STA (18:47)
== END 2021-03-24 19:46 | disposition home or self-care (01) ==
LOC: EC 17:00
DX: S16.1XXA Strain of muscle, fascia and tendon at neck level, initial encounter (principal); E11.9 Type 2 diabetes mellitus without complications; J45.909 Unspecified asthma, uncomplicated; K21.9 Gastro-esophageal reflux disease without esophagitis; G25.81 Restless legs syndrome; F32.9 Major depressive disorder, single episode, unspecified; Z79.51 Long term (current) use of inhaled steroids; Z79.1 Long term (current) use of non-steroidal anti-inflammatories (NSAID); X58.XXXA Exposure to other specified factors, initial encounter
CPT/HCPCS: 72050; 99283; 96372; J3360

== ENCOUNTER 2021-04-10 11:09 | Emergency (ER) | payer OTHER ==
[2021-04-10 11:38] VITALS: BP 138/87; PULSE 69; RESP 18; TEMP 98.6
--- NOTE | 2021-04-10 11:56 | ED ---
URI HPI - General Chief Complaint: Upper Respiratory Infection Stated Complaint: Covid exposure, symptoms Time Seen by Provider: 04/10/21 11:42 Source: patient, RN notes reviewed Mode of arrival: ambulatory Limitations: no limitations - History of Present Illness Initial Comments: 40-year-old male presents emergency Department chief complaint of COVID-19 exposure. Patient states he is currently vaccinated, asymptomatic. Very close exposure and is concerned about. Patient denies any current chest pain shortness of breath on his chronic asthma issues, nausea vomiting diarrhea constipation no fevers chills. - Related Data Home Medications Medication Instructions Recorded Confirmed Albuterol Sulfate [Proair Hfa] 1 - 2 puff INHALATION RT-Q6H PRN 03/16/16 12/06/19 DULoxetine HCL [Cymbalta] 30 mg PO BID 12/06/19 12/06/19 Ergocalciferol [Vitamin D2] 50,000 unit PO MOFR 12/06/19 12/06/19 HYDROcodone/APAP 7.5-325MG [[place] 1 tab PO BID 12/06/19 12/06/19 7.5-325] Omeprazole [PriLOSEC] 40 mg PO DAILY 12/06/19 12/06/19 tiZANidine [Zanaflex] 2 mg PO HS 12/06/19 12/06/19 Previous Rx's Medication Instructions Recorded Naproxen 500 mg PO Q12HR #20 tab 03/16/16 Cyclobenzaprine [Flexeril] 10 mg PO TID PRN #15 tab 03/24/21 Ibuprofen [Motrin] 600 mg PO Q8HR PRN #20 tab 03/24/21 Allergies Allergy/AdvReac Type Severity Reaction Status Date / Time No Known Allergies Allergy Verified 04/10/21 11:41 Review of Systems ROS Statement: Those systems with pertinent positive or pertinent negative responses have been documented in the HPI. ROS Other: All systems not noted in ROS Statement are negative. Past Medical History Past Medical History: Asthma, Diabetes Mellitus, GERD/Reflux, Liver Disease, Pneumonia Additional Past Medical History / Comment(s): NIDDM type II-diet controlled, bronchitis, nonalcoholic fatty liver, RLS, chronic cervical/back pain. History of Any Multi-Drug Resistant Organisms: None Reported Past Surgical History: Orthopedic Surgery Additional Past Surgical History / Comment(s): Bilateral eye surgery for strabismus, R foot surgery to remove glass, colonoscopy. Past Anesthesia/Blood Transfusion Reactions: No Reported Reaction Past Psychological History: Depression Smoking Status: Never smoker Past Alcohol Use History: None Reported Past Drug Use History: None Reported - Past Family History Mother Family Medical History: Coronary Artery Disease (CAD), Diabetes Mellitus, Myocardial Infarction ([place]) Additional Family Medical History / Comment(s): CABG, pt does not recall at what age mother had [place] Father Family Medical History: Asthma, Coronary Artery Disease (CAD), Diabetes Mellitus General Exam Limitations: no limitations General appearance: alert, in no apparent distress Head exam: Present: atraumatic, normocephalic, normal inspection Eye exam: Present: normal appearance, PERRL, EOMI. Absent: scleral icterus, conjunctival injection, periorbital swelling ENT exam: Present: normal exam, normal oropharynx, mucous membranes moist Neck exam: Present: normal inspection, full ROM. Absent: tenderness, meningismus, lymphadenopathy Respiratory exam: Present: normal lung sounds bilaterally. Absent: respiratory distress, wheezes, rales, rhonchi, stridor Cardiovascular Exam: Present: regular rate, normal rhythm, normal heart sounds. Absent: systolic murmur, diastolic murmur, rubs, gallop, clicks Course Vital Signs 04/10/21 11:34 Temperature 98.6 F Pulse Rate 69 Respiratory 18 Rate Blood Pressure 138/87 O2 Sat by Pulse 98 Oximetry Medical Decision Making - Medical Decision Making Patient's COVID-19 is negative be discharged stable condition. - Lab Data Lab Results 04/10/21 Range/Units 11:41 Coronavirus (PCR) Not Detected (Not Detectd) Disposition Clinical Impression: Encounter for laboratory testing for COVID-19 virus Disposition: HOME SELF-CARE Condition: Stable Additional Instructions: Please return to the Emergency Department if symptoms worsen or any other concerns. Is patient prescribed a controlled substance at d/c from ED?: No Referrals: Aruna Orellana MD [Primary Care Provider] - 1-2 days Time of Disposition: 13:07
== END 2021-04-10 13:22 | disposition home or self-care (01) ==
LOC: EC 11:09
DX: Z11.52 Encounter for screening for COVID-19 (principal); Z20.822 Contact with and (suspected) exposure to COVID-19; E11.9 Type 2 diabetes mellitus without complications; J45.909 Unspecified asthma, uncomplicated; K21.9 Gastro-esophageal reflux disease without esophagitis; F32.9 Major depressive disorder, single episode, unspecified; Z79.1 Long term (current) use of non-steroidal anti-inflammatories (NSAID); Z79.51 Long term (current) use of inhaled steroids; Z79.899 Other long term (current) drug therapy
CPT/HCPCS: 87635; 99282

== ENCOUNTER 2021-05-31 17:17 | Emergency (ER) | payer OTHER ==
[2021-05-31 17:46] VITALS: BP 140/79; PULSE 66; RESP 18; TEMP 98.3
--- NOTE | 2021-05-31 18:34 | XR ---
PROCEDURE: XR hand complete LT - 3V DATE AND TIME: 05/31/2021 6:25 PM CLINICAL INDICATION: 40-year-old with left thumb pain and swelling TECHNIQUE: Department protocol COMPARISON: None FINDINGS: There is no fracture or malalignment. The soft tissues are unremarkable. IMPRESSION: NO ACUTE PROCESS.
[2021-05-31] MEDS ORDERED: BACITRACIN OINT 1 EACH PACKET TOPICAL ONE (19:30)
--- NOTE | 2021-05-31 19:30 | ED ---
General Adult HPI - General Chief complaint: Extremity Problem,Nontraumatic Stated complaint: L hand swelling Time Seen by Provider: 05/31/21 18:34 Source: patient, RN notes reviewed Mode of arrival: ambulatory Limitations: no limitations - History of Present Illness Initial comments: 40-year-old male presents to the emergency department with concerns of a reddened area on the left thumb that is accompanied by mild pain and some swelling. 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 States he takes Motrin twice daily and does not need anything for pain. Denies fever, loss of sensation, decreased range of motion, trauma, or injury. - Related Data Home Medications Medication Instructions Recorded Confirmed Albuterol Sulfate [Proair Hfa] 1 - 2 puff INHALATION RT-Q6H PRN 03/16/16 12/06/19 DULoxetine HCL [Cymbalta] 30 mg PO BID 12/06/19 12/06/19 Ergocalciferol [Vitamin D2] 50,000 unit PO MOFR 12/06/19 12/06/19 HYDROcodone/APAP 7.5-325MG [[place] 1 tab PO BID 12/06/19 12/06/19 7.5-325] Omeprazole [PriLOSEC] 40 mg PO DAILY 12/06/19 12/06/19 tiZANidine [Zanaflex] 2 mg PO HS 12/06/19 12/06/19 Previous Rx's Medication Instructions Recorded Naproxen 500 mg PO Q12HR #20 tab 03/16/16 Cyclobenzaprine [Flexeril] 10 mg PO TID PRN #15 tab 03/24/21 Ibuprofen [Motrin] 600 mg PO Q8HR PRN #20 tab 03/24/21 Cephalexin [Keflex] 500 mg PO Q6HR 7 Days #28 cap 05/31/21 Allergies Allergy/AdvReac Type Severity Reaction Status Date / Time No Known Allergies Allergy Verified 04/10/21 11:41 Review of Systems ROS Statement: Those systems with pertinent positive or pertinent negative responses have been documented in the HPI. ROS Other: All systems not noted in ROS Statement are negative. Past Medical History Past Medical History: Asthma, Diabetes Mellitus, GERD/Reflux, Liver Disease, Pneumonia Additional Past Medical History / Comment(s): NIDDM type II-diet controlled, bronchitis, nonalcoholic fatty liver, RLS, chronic cervical/back pain. History of Any Multi-Drug Resistant Organisms: None Reported Past Surgical History: Orthopedic Surgery Additional Past Surgical History / Comment(s): Bilateral eye surgery for strabismus, R foot surgery to remove glass, colonoscopy. Past Anesthesia/Blood Transfusion Reactions: No Reported Reaction Past Psychological History: Depression Smoking Status: Never smoker Past Alcohol Use History: None Reported Past Drug Use History: None Reported - Past Family History Mother Family Medical History: Coronary Artery Disease (CAD), Diabetes Mellitus, Myocardial Infarction ([place]) Additional Family Medical History / Comment(s): CABG, pt does not recall at what age mother had [place] Father Family Medical History: Asthma, Coronary Artery Disease (CAD), Diabetes Mellitus General Exam Limitations: no limitations (Well-developed, well-nourished male in no acute distress. Initial temperature 98.3, pulse 66, respirations 18, blood pressure 140/79, pulse 98% on room air.) General appearance: alert, in no apparent distress Respiratory exam: Present: normal lung sounds bilaterally. Absent: respiratory distress, wheezes, rales, rhonchi, stridor Cardiovascular Exam: Present: regular rate, normal rhythm, normal heart sounds. Absent: systolic murmur, diastolic murmur, rubs, gallop, clicks GI/Abdominal exam: Present: soft, normal bowel sounds. Absent: distended, tenderness, guarding, rebound, rigid Left Forearm Wrist exam: Present: normal inspection, full ROM. Absent: tenderness, swelling, deformity, erythema, tenderness over anatomical snuff box, pain with axial thumb loading Hand Wrist exam: Present: full ROM, tenderness (Diffuse tenderness upon palpation of the DIP and distal phalanx of the first digit on the left hand), swelling (minimal swelling noted to the first digit of the left hand when compared with the right side), erythema (small localized area of erythema at the lateral aspect of the distal phalanx; redness does not extend to the DIP joint). Absent: laceration, deformity Neuro motor exam: Present: thumb opposition intact, thumb IP flexion intact, thumb adduction intact Vascular: Present: normal capillary refill, radial pulse, ulnar pulse. Absent: vascular compromise, Pallo Neurological exam: Present: alert, oriented X3, CN II-XII intact Psychiatric exam: Present: normal affect, normal mood Skin exam: Present: warm, dry, intact. Absent: rash Course Vital Signs 05/31/21 17:41 Temperature 98.3 F Pulse Rate 66 Respiratory 18 Rate Blood Pressure 140/79 O2 Sat by Pulse 98 Oximetry Medical Decision Making - Medical Decision Making 40 year old male with a past medical history of diabetes since to the emergency department for evaluation of mild peaking, swelling, and erythema to the left first digit. Upon exam, erythematous area is localized and measures approximately 1/2 cm in diameter. Does have very mild swelling of the distal phalanx and DIP joint when compared with the contralateral side. Complains of mild pain with movement and palpation. Declined pain medication. No injury or trauma. X-ray of the left hand was unremarkable. Results were discussed with patient. Topical bacitracin was applied and he will be prescribed Keflex due to his history of diabetes and concern for infection. Patient will be discharged home and instructed to follow up with his PCP for recheck in the next 1-2 days. Return parameters were discussed in detail. Patient verbalizes understanding and agrees with this plan. This patient's care was discussed with my attending Dr. Morgan. - Radiology Data Radiology results: report reviewed, image reviewed X-ray of the left hand was obtained. Report was reviewed in its entirety. Impression per Dr. Murray is no acute process. Disposition Clinical Impression: Cellulitis of left thumb Disposition: HOME SELF-CARE Condition: Stable Instructions (If sedation given, give patient instructions): Cellulitis (ED) Additional Instructions: Take antibiotic as directed. Continue your Motrin regimen. Follow up with your PCP for a recheck in 1-2 days. Return to the Emergency Department with any new, worsening, or concerning symptoms. Prescriptions: Cephalexin [Keflex] 500 mg PO Q6HR 7 Days #28 cap Is patient prescribed a controlled substance at d/c from ED?: No Referrals: Aruna Orellana MD [Primary Care Provider] - 1-2 days Time of Disposition: 19:56
[2021-05-31] MEDS ORDERED: CEPHALEXIN 500 MG CAP PO STA (19:35)
== END 2021-05-31 20:17 | disposition home or self-care (01) ==
LOC: EC 17:17
DX: L03.012 Cellulitis of left finger (principal); E11.9 Type 2 diabetes mellitus without complications; J45.909 Unspecified asthma, uncomplicated; K21.9 Gastro-esophageal reflux disease without esophagitis; F32.A Depression, unspecified; Z79.51 Long term (current) use of inhaled steroids; Z79.1 Long term (current) use of non-steroidal anti-inflammatories (NSAID); Z79.899 Other long term (current) drug therapy
CPT/HCPCS: 99283

== ENCOUNTER 2021-07-27 14:32 | Emergency (ER) | payer OTHER ==
[2021-07-27 14:48] VITALS: PULSE 78; TEMP 97.8
[2021-07-27] MEDS ORDERED: KETOROLAC 15 MG/ML 1 ML VIAL IVP STA (15:02)
[2021-07-27] MEDS ORDERED: KETOROLAC 15 MG/ML 1 ML VIAL IM STA (15:04)
--- NOTE | 2021-07-27 15:28 | XR ---
EXAMINATION TYPE: XR knee complete RT DATE OF EXAM: 07/27/2021 CLINICAL HISTORY: pain TECHNIQUE: Three views of the right knee are obtained. COMPARISON: None. FINDINGS: There is no acute fracture/dislocation. The tri-compartment joint spaces appear within no rmal limits. The overlying soft tissue appears unremarkable. IMPRESSION: There is no acute fracture or dislocation.ICD 10 NO FRACTURE, INITIAL EVALUATION
--- NOTE | 2021-07-27 16:39 | ED ---
Lower Extremity Injury HPI - General Chief Complaint: Extremity Injury, Lower Stated Complaint: IHS/Rt Knee Injury Time Seen by Provider: 07/27/21 14:53 Source: patient Mode of arrival: wheelchair Limitations: no limitations - History of Present Illness Initial Comments: Patient is a 41-year-old male who presents with right knee pain. 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 He denies fall. Patient cannot recall which way his knee twisted, but reports 10/10 pain over the medial and posterior areas of the knee. Patient reports he was unable to walk on it and expected symptoms to improve in 10-15 minutes but symptoms continued. - Related Data Home Medications Medication Instructions Recorded Confirmed Albuterol Sulfate [Proair Hfa] 1 - 2 puff INHALATION RT-Q6H PRN 03/16/16 12/06/19 DULoxetine HCL [Cymbalta] 30 mg PO BID 12/06/19 12/06/19 Ergocalciferol [Vitamin D2] 50,000 unit PO MOFR 12/06/19 12/06/19 HYDROcodone/APAP 7.5-325MG [[place] 1 tab PO BID 12/06/19 12/06/19 7.5-325] Omeprazole [PriLOSEC] 40 mg PO DAILY 12/06/19 12/06/19 tiZANidine [Zanaflex] 2 mg PO HS 12/06/19 12/06/19 Previous Rx's Medication Instructions Recorded Naproxen 500 mg PO Q12HR #20 tab 03/16/16 Cyclobenzaprine [Flexeril] 10 mg PO TID PRN #15 tab 03/24/21 Ibuprofen [Motrin] 600 mg PO Q8HR PRN #20 tab 03/24/21 Cephalexin [Keflex] 500 mg PO Q6HR 7 Days #28 cap 05/31/21 Allergies Allergy/AdvReac Type Severity Reaction Status Date / Time No Known Allergies Allergy Verified 07/27/21 14:46 Review of Systems ROS Statement: Those systems with pertinent positive or pertinent negative responses have been documented in the HPI. ROS Other: All systems not noted in ROS Statement are negative. Past Medical History Past Medical History: Asthma, Diabetes Mellitus, GERD/Reflux, Liver Disease, Pneumonia Additional Past Medical History / Comment(s): NIDDM type II-diet controlled, bronchitis, nonalcoholic fatty liver, RLS, chronic cervical/back pain. History of Any Multi-Drug Resistant Organisms: None Reported Past Surgical History: Orthopedic Surgery Additional Past Surgical History / Comment(s): Bilateral eye surgery for strabismus, R foot surgery to remove glass, colonoscopy. Past Anesthesia/Blood Transfusion Reactions: No Reported Reaction Past Psychological History: Depression Smoking Status: Never smoker Past Alcohol Use History: None Reported Past Drug Use History: None Reported - Past Family History Mother Family Medical History: Coronary Artery Disease (CAD), Diabetes Mellitus, Myocardial Infarction ([place]) Additional Family Medical History / Comment(s): CABG, pt does not recall at what age mother had [place] Father Family Medical History: Asthma, Coronary Artery Disease (CAD), Diabetes Mellitus General Exam Limitations: no limitations General appearance: alert, in no apparent distress Head exam: Present: atraumatic, normocephalic, normal inspection Respiratory exam: Present: normal lung sounds bilaterally. Absent: respiratory distress, wheezes, rales, rhonchi, stridor Cardiovascular Exam: Present: regular rate, normal rhythm, normal heart sounds. Absent: systolic murmur, diastolic murmur, rubs, gallop, clicks Extremities exam: Present: normal inspection, tenderness (Medial and posterior area of right knee), normal capillary refill, calf tenderness (Positive valgus stress test. Negative varus stress test. Unable to perform other tests due to pain.). Absent: full ROM (Range of motion limited due to pain), joint swelling Neurological exam: Present: alert, oriented X3, CN II-XII intact Psychiatric exam: Present: normal affect, normal mood Skin exam: Present: warm, dry, intact, normal color. Absent: rash Course Vital Signs 07/27/21 14:46 Temperature 97.8 F Pulse Rate 78 Respiratory 20 Rate O2 Sat by Pulse 98 Oximetry Medical Decision Making - Medical Decision Making This is a 41-year-old male who presents with right knee pain. Right knee x-ray reveals no acute fracture or dislocation. Results discussed with patient. Patient will be discharged with referral to [facility] services for further evaluation and treatment. Disposition Clinical Impression: Right knee pain Disposition: HOME SELF-CARE Condition: Good Instructions (If sedation given, give patient instructions): Knee Sprain (ED) Additional Instructions: Follow-up with [facility] services at earliest available appointment for further evaluation and treatment. Keep knee in immobilizer while walking and sleeping. You can take immobilizer off when right knee is resting. Ice the right knee for 20 minutes 4-5 times a day. Take Motrin or Tylenol for pain. Return to the emergency department if you experience new, concerning, or worsening symptoms. Is patient prescribed a controlled substance at d/c from ED?: No Referrals: Aruna Orellana MD [Primary Care Provider] - 1-2 days Time of Disposition: 16:44
[2021-07-27 17:31] VITALS: BP 134/87; RESP 18
== END 2021-07-27 17:31 | disposition home or self-care (01) ==
LOC: EC 14:32
DX: M25.561 Pain in right knee (principal); J45.909 Unspecified asthma, uncomplicated; E11.9 Type 2 diabetes mellitus without complications; K21.9 Gastro-esophageal reflux disease without esophagitis; F32.A Depression, unspecified
CPT/HCPCS: 99283; 96372; 73562; J1885

== ENCOUNTER 2021-08-05 00:47 | Emergency (ER) | payer OTHER ==
[2021-08-05 00:57] VITALS: RESP 18; TEMP 97.6
[2021-08-05] MEDS ORDERED: KETOROLAC 15 MG/ML 1 ML VIAL IM STA (01:24)
--- NOTE | 2021-08-05 01:25 | ED ---
General Adult HPI - General Chief complaint: Extremity Injury, Lower Stated complaint: Right leg pain Time Seen by Provider: 08/05/21 01:16 Source: patient, RN notes reviewed Mode of arrival: wheelchair - History of Present Illness Initial comments: 41-year-old male presents to the emergency department for evaluation of right knee pain. Upon arrival, patient is wearing a knee immobilizer and utilizing crutches. He states the injury occurred last week and was seen by his PCP who set him up with an orthopedic follow-up on the . Patient states the pain worsened today and radiates down the leg and toward the hip. He has been non- weight bearing as instructed. Denies any new injury, chest pain, shortness of breath, difficulty breathing, or loss of sensation in lower extremities. - Related Data Home Medications Medication Instructions Recorded Confirmed Albuterol Sulfate [Proair Hfa] 1 - 2 puff INHALATION RT-Q6H PRN 03/16/1612/05 DULoxetine HCL [Cymbalta] 30 mg PO BID 12/06/19 12/06/19 Ergocalciferol [Vitamin D2] 50,000 unit PO MOFR 12/06/19 12/06/19 HYDROcodone/APAP 7.5-325MG [[place] 1 tab PO BID 12/06/19 12/06/19 7.5-325] Omeprazole [PriLOSEC] 40 mg PO DAILY 12/06/19 12/06/19 tiZANidine [Zanaflex] 2 mg PO HS 12/06/19 12/06/19 Previous Rx's Medication Instructions Recorded Naproxen 500 mg PO Q12HR #20 tab 03/16/16 Cyclobenzaprine [Flexeril] 10 mg PO TID PRN #15 tab 03/24/21 Ibuprofen [Motrin] 600 mg PO Q8HR PRN #20 tab 03/24/21 Cephalexin [Keflex] 500 mg PO Q6HR 7 Days #28 cap 05/31/21 Allergies Allergy/AdvReac Type Severity Reaction Status Date / Time No Known Allergies Allergy Verified 08/05/21 00:57 Review of Systems ROS Statement: Those systems with pertinent positive or pertinent negative responses have been documented in the HPI. ROS Other: All systems not noted in ROS Statement are negative. Past Medical History Past Medical History: Asthma, Diabetes Mellitus, GERD/Reflux, Liver Disease, Pneumonia Additional Past Medical History / Comment(s): NIDDM type II-diet controlled, bronchitis, nonalcoholic fatty liver, RLS, chronic cervical/back pain. History of Any Multi-Drug Resistant Organisms: None Reported Past Surgical History: Orthopedic Surgery Additional Past Surgical History / Comment(s): Bilateral eye surgery for strabismus, R foot surgery to remove glass, colonoscopy. Past Anesthesia/Blood Transfusion Reactions: No Reported Reaction Past Psychological History: Depression Smoking Status: Never smoker Past Alcohol Use History: None Reported Past Drug Use History: None Reported - Past Family History Mother Family Medical History: Coronary Artery Disease (CAD), Diabetes Mellitus, Myocardial Infarction ([place]) Additional Family Medical History / Comment(s): CABG, pt does not recall at what age mother had [place] Father Family Medical History: Asthma, Coronary Artery Disease (CAD), Diabetes Mellitus General Exam Limitations: physical limitation General appearance: alert, in no apparent distress, other (Well-developed, well- nourished male in no acute distress. Initial temperature 97.6, pulse 89, respirations 18, blood pressure 136/84, pulse ox 98% on room air.) Respiratory exam: Present: normal lung sounds bilaterally. Absent: respiratory distress, wheezes, rales, rhonchi, stridor Cardiovascular Exam: Present: regular rate, normal rhythm, normal heart sounds. Absent: systolic murmur, diastolic murmur, rubs, gallop, clicks GI/Abdominal exam: Present: soft, normal bowel sounds. Absent: distended, tend erness, guarding, rebound, rigid Right Upper Leg exam: Present: normal inspection, full ROM. Absent: tenderness, swelling Knee exam: Present: tenderness (Tenderness upon palpation of the anterior medial and posterior knee), swelling (Mild swelling to the anterior aspect of the knee). Absent: erythema, effusion Lower Leg exam: Present: normal inspection, full ROM. Absent: tenderness, swelling Ankle exam: Present: normal inspection, full ROM. Absent: tenderness Neurovascular tendon exam: Present: no vascular compromise Neurological exam: Present: alert, oriented X3, CN II-XII intact Psychiatric exam: Present: normal affect, normal mood Skin exam: Present: warm, dry, intact, normal color. Absent: rash Course Vital Signs 08/05/21 08/05/21 00:52 03:35 Temperature 97.6 F Pulse Rate 89 78 Respiratory 18 18 Rate Blood Pressure 136/84 124/84 O2 Sat by Pulse 98 96 Oximetry Medical Decision Making - Medical Decision Making 41-year-old male with a past medical history of chronic right knee pain presents to the emergency department for evaluation of right knee pain sustained an injury last week. Patient is scheduled to follow up with orthopedist on the , but is unable to tolerate the pain at home. Patient currently has a knee immobilizer and crutches and has been using them as directed. Patient has had no new injury or trauma therefore no additional imaging was done. Mild swelling noted to the right anterior aspect of the knee; no erythema. Quad and calf are soft and nontender upon palpation. He was given Toradol IM with no improvement therefore this was followed up with the [place] for which patient experienced an improvement. He states he has a surplus of Motrin at home and does not require any more upon discharge. He will be instructed follow this family doctor for a recheck and to keep the appointment with orthopedist as scheduled. Return parameters were discussed in detail. Patient verbalizes understanding and agrees with this plan. Disposition Clinical Impression: Knee pain, right Disposition: HOME SELF-CARE Condition: Stable Instructions (If sedation given, give patient instructions): Knee Pain (ED) Additional Instructions: Continue taking home medications as prescribed. Remain nonweightbearing and utilize crutches as directed. Keep your scheduled follow-up appointment with the orthopedist. Return to the emergency department with any new, worsening, or concerning symptoms. Is patient prescribed a controlled substance at d/c from ED?: No Referrals: Aruna Orellana MD [Primary Care Provider] - 1-2 days Time of Disposition: 03:03
[2021-08-05] MEDS ORDERED: HYDROcodone/APAP 5-325MG 1 EACH TAB PO STA (02:15)
[2021-08-05 03:36] VITALS: BP 124/84; PULSE 78
== END 2021-08-05 03:36 | disposition home or self-care (01) ==
LOC: EC 00:47
DX: M25.561 Pain in right knee (principal); E11.9 Type 2 diabetes mellitus without complications; J45.909 Unspecified asthma, uncomplicated; F32.A Depression, unspecified; Z79.51 Long term (current) use of inhaled steroids; Z79.1 Long term (current) use of non-steroidal anti-inflammatories (NSAID); Z79.899 Other long term (current) drug therapy
CPT/HCPCS: 99283; 96372; J1885

== ENCOUNTER → 2021-08-23 | Outpatient (CLI) | payer OTHER ==
--- NOTE | 2021-08-24 03:22 | MR ---
EXAMINATION TYPE: MR knee RT wo con DATE OF EXAM: 08/23/2021 COMPARISON: None HISTORY: Right knee pain Multiplanar multiecho imaging of the right knee without contrast. The anterior and posterior cruciate ligaments are intact. There is mild knee joint effusion. There is slight increased signal within the posterior horn of the medial meniscus. The lateral meniscus is in tact. The collateral ligaments are intact. Joint spaces are fairly normal. There is no evidence of a fractu re. I see no bony destructive process. IMPRESSION: No evidence of ligamentous tear. Small intrasubstance tear posterior horn of the medial meniscus. Kne e joint effusion is suggestive of some nonspecific synovitis. No fracture.
== END | disposition home or self-care (01) ==
LOC: RADMRIMAIN 13:04
PROVIDERS: ATTEND Orthopaedic Surgery
DX: M23.321 Other meniscus derangements, posterior horn of medial meniscus, right knee (principal); M25.461 Effusion, right knee

== ENCOUNTER → 2021-09-04 | Outpatient (CLI) | payer OTHER ==
[2021-09-04 22:36] LABS: Basophils # (A) 0.07 X 10*3/uL (0.00-0.10); Eosinophils # (A) 0.18 X 10*3/uL (0.04-0.35); Eosinophils % (A) 2.6 %; HCT 42.8 % (39.6-50.0); Immature Grans, Automated 0.1 %; Lymphocytes # (A) 2.32 X 10*3/uL (0.90-5.00); MCH 28.8 pg (27.0-32.0); MCHC 32.7 g/dL (32.0-37.0); MCV 88.1 fL (80.0-97.0); Mean Platelet Volume 9.8 fL (9.5-12.2); Monocytes # (A) 0.54 X 10*3/uL (0.20-1.00); Monocytes % (A) 7.7 %; NRBC Per 100 WBC 0 /100 WBCS (0.0-0.0); Neutrophils # (A) 3.91 X 10*3/uL (1.80-7.70); Neutrophils % (A) 55.6 %; Platelet Count 250 X 10*3/uL (140-440); RBC 4.86 X 10*6/uL (4.40-5.60); RDW 12.8 % (11.5-14.5); WBC 7.03 X 10*3/uL (4.50-10.00)
[2021-09-04 23:02] LABS: Anion Gap 9.4 mmol/L (10.00-18.00); Carbon Dioxide 24.6 mmol/L (20.0-27.5); Potassium 4.3 mmol/L (3.5-5.5)
== END | disposition home or self-care (01) ==
LOC: LABPAT 15:30
PROVIDERS: ATTEND Orthopaedic Surgery
DX: Z01.812 Encounter for preprocedural laboratory examination (principal); M23.91 Unspecified internal derangement of right knee
CPT/HCPCS: 80051; 85025